=== PATIENT | male | born 1945 | race Caucasian/White ===

== ENCOUNTER 2024-05-09 10:44 | Emergency (ER) | payer MEDICARE, OTHER ==
[~2024-05-09] VITALS: Ht 165.1 cm; Wt 63.5 kg
[2024-05-09 11:31] LABS: APPEARANCE,URINE Clear (CLEAR); BILIRUBIN,URINE Negative (NEGATIVE); BLOOD, URINE Negative Ery/uL (NEGATIVE); COLOR,URINE YELLOW (YELLOW); KETONES,URINE Negative (NEGATIVE); LEUKOCYTE ESTERASE ,URINE Negative (NEGATIVE); NITRITE, URINE Negative (NEGATIVE); PH,URINE 6.5 (5.0-8.0); PROTEIN,URINE Negative (NEGATIVE); UGLUCOSE Negative (NEGATIVE); UROBILINOGEN,URINE 0.2 EU/dL (0.2)
[2024-05-09 11:34] LABS: BASOPHILS % (AUTO) 0.5 % (0.0-2.0); EOSINOPHILS # (AUTO) 0.2 K/uL (0.0-0.7); EOSINOPHILS % (AUTO) 3.7 % (0.0-6.0); HEMATOCRIT 41 % (39-51); HEMOGLOBIN 13.4 g/dL (13.5-17.5); LYMPHOCYTES # (AUTO) 1.5 K/uL (0.8-4.8); LYMPHOCYTES % (AUTO) 30.7 % (20.0-44.0); MEAN CORPUSCULAR HEMOGLOBIN 25 PG (26.0-33.0); MEAN CORPUSCULAR HGB CONC 33 g/dl (31.0-36.0); MEAN CORPUSCULAR VOLUME 78 fL (80-96); MONOCYTES # (AUTO) 0.6 K/uL (0.1-1.30); MONOCYTES % (AUTO) 11.8 % (2.0-12.0); NEUTROPHILS # (AUTO) 2.7 K/uL (1.8-8.9); NEUTROPHILS % (AUTO) 53.3 % (43.0-81.0); PLATELET COUNT (AUTO) 187 K/uL (150-450); RED BLOOD CELL COUNT(AUTO) 5.31 MIL/uL (4.5-6.0); RED CELL DISTRIBUTION WIDTH 14.3 % (11.5-15.0)
[2024-05-09 11:44] LABS: ALANINE AMINOTRANSFERASE 24 U/L (12-78); ALBUMIN 3.2 g/dL (3.4-5.0); ALCOHOL, BLOOD < 3 mg/dL (0-10); ALKALINE PHOSPHATASE 71 U/L (46-116); ASPARTATE AMINOTRANSFERASE 17 U/L (15-37); BILIRUBIN,DIRECT 0.1 mg/dL (0.0-0.2); BILIRUBIN,TOTAL 0.3 mg/dL (0.2-1.0); CARBON DIOXIDE 28 mmol/L (21-32); CHLORIDE 107 mmol/L (98-107); GLUCOSE 101 mg/dL (74-106); POTASSIUM 4.1 mmol/L (3.5-5.1); SODIUM SERUM 140 mmol/L (136-145); TOTAL PROTEIN, SERUM 6.9 g/dL (6.4-8.2); UREA NITROGEN, BLOOD 19 mg/dL (7-18)
[2024-05-09 11:48] LABS: ACETAMINOPHEN <10 ug/ml (10-30); SALICYLATE < 2.3 mg/dL (2.8-20.0)
[2024-05-09 12:14] LABS: AMPHETAMINE, URINE NEGATIVE (NEGATIVE); BARBITURATE, URINE NEGATIVE (NEGATIVE); BENZODIAZEPINE, URINE NEGATIVE (NEGATIVE); CANNABINOID, URINE NEGATIVE (NEGATIVE); COCCAINE, URINE NEGATIVE (NEGATIVE); OPIATE, URINE NEGATIVE (NEGATIVE); PHENCYCLIDINE SCREEN,URINE NEGATIVE (NEGATIVE)
[2024-05-09] MEDS ORDERED: MELA10CA PO (12:16)
[2024-05-09] MEDS ORDERED: CYAN100T9 PO (12:16)
[2024-05-09] MEDS ORDERED: ZINC50TA69 PO (12:16)
[2024-05-09] MEDS ORDERED: MAGN500C16 PO (12:16)
[2024-05-09] MEDS ORDERED: TAMS-12 PO (12:16)
[2024-05-09] MEDS ORDERED: ESCI10TA PO (12:16)
[2024-05-09] MEDS ORDERED: CHOL100062 PO (12:16)
[2024-05-09] MEDS ORDERED: SENN8.6T19 PO (12:16)
[2024-05-09] MEDS ORDERED: ASCO100058 PO (12:16)
[2024-05-09] MEDS ORDERED: OLANZAPINE 10 MG VIAL IM ONE (12:56)
[2024-05-09] MEDS: OLANZAPINE 10 MG VIAL IM ONE (13:00)
[2024-05-09 16:41] VITALS: BP 132/77; TEMP 98.2; O2SAT 98
== END 2024-05-09 16:42 ==
LOC: ER 10:52
DX: F03.911 Unspecified dementia, unspecified severity, with agitation (principal); G47.00 Insomnia, unspecified; R45.1 Restlessness and agitation; E78.5 Hyperlipidemia, unspecified; Z20.822 Contact with and (suspected) exposure to COVID-19
CPT/HCPCS: 99285; 96372; 85025; 80048; 80076; 81003; 36415; 87426; 80143; 80320; 80307; J3490; G0480

== ENCOUNTER 2024-11-14 16:02 | Inpatient (IN) | payer MEDICARE, OTHER ==
[~2024-11-14] VITALS: Ht 172.7 cm; Wt 53.8 kg
[~2024-11-14 16:02] MED LIST: ASCO100058 PO; CHOL100062 PO; CYAN100T9 PO; ESCI10TA PO; MAGN500C16 PO; MELA10CA PO; SENN8.6T19 PO; TAMS-12 PO; ZINC50TA69 PO
[2024-11-14 17:25] LABS: BASOPHILS % (AUTO) 0.4 % (0.0-2.0); EOSINOPHILS # (AUTO) 0.1 K/uL (0.0-0.7); EOSINOPHILS % (AUTO) 1.3 % (0.0-6.0); HEMATOCRIT 37 % (39-51); HEMOGLOBIN 11.7 g/dL (13.5-17.5); LYMPHOCYTES # (AUTO) 1.6 K/uL (0.8-4.8); LYMPHOCYTES % (AUTO) 21.1 % (20.0-44.0); MEAN CORPUSCULAR HEMOGLOBIN 25 PG (26.0-33.0); MEAN CORPUSCULAR HGB CONC 32 g/dl (31.0-36.0); MEAN CORPUSCULAR VOLUME 78 fL (80-96); MONOCYTES # (AUTO) 0.7 K/uL (0.1-1.30); NEUTROPHILS % (AUTO) 67.2 % (43.0-81.0); PLATELET COUNT (AUTO) 299 K/uL (150-450); RED BLOOD CELL COUNT(AUTO) 4.68 MIL/uL (4.5-6.0); RED CELL DISTRIBUTION WIDTH 16.6 % (11.5-15.0); WHITE BLOOD COUNT (AUTO) 7.4 K/uL (4.3-11.0)
[2024-11-14 17:35] LABS: CARBON DIOXIDE 35 mmol/L (21-32); CHLORIDE 104 mmol/L (98-107); CREATININE 0.8 mg/dL (0.6-1.3); GLUCOSE 100 mg/dL (74-106); POTASSIUM 4.3 mmol/L (3.5-5.1); SODIUM SERUM 138 mmol/L (136-145); UREA NITROGEN, BLOOD 19 mg/dL (7-18)
[2024-11-14 17:42] LABS: ALANINE AMINOTRANSFERASE 73 U/L (12-78); ALBUMIN 1.9 g/dL (3.4-5.0); ALKALINE PHOSPHATASE 99 U/L (46-116); ASPARTATE AMINOTRANSFERASE 41 U/L (15-37); BILIRUBIN,DIRECT 0.1 mg/dL (0.0-0.2); BILIRUBIN,TOTAL 0.3 mg/dL (0.2-1.0); TOTAL PROTEIN, SERUM 7.9 g/dL (6.4-8.2)
[2024-11-14] MEDS ORDERED: MAGN400T52 PO (17:52)
[2024-11-14] MEDS ORDERED: ALBU2.5V13 NEB (17:52)
[2024-11-14] MEDS ORDERED: TRAZ150T75 PO (17:52)
[2024-11-14] MEDS ORDERED: GUAI100S9 PO (17:52)
[2024-11-14] MEDS ORDERED: MAG30ORA PO (17:52)
[2024-11-14] MEDS ORDERED: PANT40TA49 PO (17:52)
[2024-11-14] MEDS ORDERED: CRAN300T PO (17:52)
[2024-11-14] MEDS ORDERED: ACET325T53 PO (17:52)
[2024-11-14] MEDS ORDERED: MEMA10TA56 PO (17:52)
[2024-11-14] MEDS ORDERED: ALBU6.7H9 IH (17:52)
[2024-11-14] MEDS ORDERED: MULT-213 PO (17:52)
[2024-11-14] MEDS ORDERED: DOCU100C36 PO (17:52)
[2024-11-14] MEDS ORDERED: MELA1TAB2 PO (17:52)
[2024-11-14] MEDS ORDERED: MAGN400O6 PO (17:52)
[2024-11-14] MEDS ORDERED: ATOR40TA PO (17:52)
[2024-11-14] MEDS ORDERED: DIVA-76 PO (17:52)
[2024-11-14] MEDS ORDERED: ONDANSETRON HCL/PF 4 MG/2 ML VIAL IVP PRN (20:30)
[2024-11-14] MEDS ORDERED: ACETAMINOPHEN 325 MG TABLET PO PRN (20:30)
[2024-11-14] MEDS ORDERED: ALBUTEROL FS 2.5 MG/0.5 ML VIAL.NEB NEB PRN (20:30)
[2024-11-14] MEDS ORDERED: MAG HYDROX/AL HYDROX/SIMETH 30 ML UDC PO PRN (20:30)
[2024-11-14] MEDS ORDERED: ZOLPIDEM TARTRATE 5 MG TABLET PO PRN (20:30)
[2024-11-14] MEDS ORDERED: MAGNESIUM HYDROXIDE 30 ML UDC PO PRN (20:30)
[2024-11-14] MEDS ORDERED: Z GUARD REMEDY 4 OZ OINT TP PRN (20:30)
[2024-11-14] MEDS: ENOXAPARIN SODIUM 40 MG/0.4 ML DISP.SYRIN SQ SCH (20:30)
[2024-11-14] MEDS ORDERED: DOCUSATE SODIUM 100 MG CAPSULE PO PRN (20:30)
[2024-11-14] MEDS: TRAZODONE 50 MG TABLET PO SCH (22:00)
[2024-11-14] MEDS: ATORVASTATIN 40 MG TABLET PO SCH (22:00)
[2024-11-14] MEDS: TAMSULOSIN 0.4 MG CAP.SR.24H PO SCH (22:00)
[2024-11-14] MEDS ORDERED: PYRIDOXINE PO SCH (22:00)
[2024-11-14] MEDS ORDERED: MELATONIN PO SCH (22:00)
[2024-11-14] MEDS ORDERED: ENOXAPARIN SODIUM 40 MG/0.4 ML DISP.SYRIN SQ ONE (23:25)
[2024-11-14] MEDS ORDERED: TAMSULOSIN 0.4 MG CAP.SR.24H ONE (23:25)
[2024-11-14] MEDS ORDERED: ATORVASTATIN 40 MG TABLET ONE (23:25)
[2024-11-14] MEDS ORDERED: TRAZODONE 50 MG TABLET ONE (23:26)
[2024-11-15 01:31] LABS: APPEARANCE,URINE CLEAR (CLEAR); BILIRUBIN,URINE NEGATIVE (NEGATIVE); BLOOD, URINE NEGATIVE Ery/uL (NEGATIVE); COLOR,URINE YELLOW (YELLOW); KETONES,URINE NEGATIVE (NEGATIVE); LEUKOCYTE ESTERASE ,URINE NEGATIVE (NEGATIVE); NITRITE, URINE NEGATIVE (NEGATIVE); PH,URINE 6.5 (5.0-8.0); PROTEIN,URINE NEGATIVE (NEGATIVE); UGLUCOSE NEGATIVE (NEGATIVE); UROBILINOGEN,URINE 0.2 EU/dL (0.2)
[2024-11-15 07:33] LABS: BASOPHILS % (AUTO) 0.6 % (0.0-2.0); EOSINOPHILS # (AUTO) 0.1 K/uL (0.0-0.7); EOSINOPHILS % (AUTO) 1.5 % (0.0-6.0); HEMATOCRIT 37 % (39-51); LYMPHOCYTES # (AUTO) 1.6 K/uL (0.8-4.8); LYMPHOCYTES % (AUTO) 25.8 % (20.0-44.0); MEAN CORPUSCULAR HEMOGLOBIN 25 PG (26.0-33.0); MEAN CORPUSCULAR HGB CONC 32 g/dl (31.0-36.0); MEAN CORPUSCULAR VOLUME 78 fL (80-96); MONOCYTES # (AUTO) 0.6 K/uL (0.1-1.30); MONOCYTES % (AUTO) 9.3 % (2.0-12.0); NEUTROPHILS % (AUTO) 62.8 % (43.0-81.0); PLATELET COUNT (AUTO) 290 K/uL (150-450); RED BLOOD CELL COUNT(AUTO) 4.78 MIL/uL (4.5-6.0); RED CELL DISTRIBUTION WIDTH 16.5 % (11.5-15.0); WHITE BLOOD COUNT (AUTO) 6.3 K/uL (4.3-11.0)
[2024-11-15 07:50] LABS: ALBUMIN 2.2 g/dL (3.4-5.0); BILIRUBIN,DIRECT 0.1 mg/dL (0.0-0.2); BILIRUBIN,TOTAL 0.3 mg/dL (0.2-1.0); CALCIUM, SERUM 9.1 mg/dL (8.5-10.1); CREATININE 0.9 mg/dL (0.6-1.3); MAGNESIUM 2.1 mg/dL (1.8-2.4); PHOSPHORUS 2.5 mg/dL (2.5-4.9); POTASSIUM 3.8 mmol/L (3.5-5.1); TOTAL PROTEIN, SERUM 8.1 g/dL (6.4-8.2)
[2024-11-15 08:14] LABS: THYROID STIMULATING HORMONE 1.52 uIU/mL (0.358-3.74)
[2024-11-15] MEDS ORDERED: Medication Not On Formulary EA (Cranberry Extract (Cranberry) 450 MG) PO SCH (09:00)
[2024-11-15] MEDS: DIVALPROEX SODIUM 250 MG TABLET.DR PO SCH (09:02)
[2024-11-15] MEDS: MEMANTINE HCL 5 MG TABLET PO SCH (09:02)
[2024-11-15] MEDS: MULTIVIT W/MINERALS 1 TAB TABLET PO SCH (09:02)
[2024-11-15] MEDS: SENNOSIDES 8.6 MG TABLET PO SCH (09:03)
[2024-11-15] MEDS: PANTOPRAZOLE 40 MG TABLET.DR PO SCH (09:03)
[2024-11-15 13:00] VITALS: BP 116/54; TEMP 97.8; O2SAT 100
[2024-11-15 21:00] VITALS: BP 110/55; TEMP 98.6; O2SAT 97
[2024-11-15] MEDS: MAGNESIUM OXIDE 400 MG TABLET PO SCH (21:53)
[2024-11-16 05:00] VITALS: BP 135/60; TEMP 96.8; O2SAT 97
[2024-11-16 13:00] VITALS: BP 130/65; TEMP 97.3; O2SAT 97
[2024-11-16 20:00] VITALS: BP 108/56; TEMP 97.9; O2SAT 100
[2024-11-17 04:00] VITALS: BP 130/58; TEMP 97.9; O2SAT 99
[2024-11-17 08:00] VITALS: BP 109/55; TEMP 97.5; O2SAT 97
[2024-11-17 16:00] VITALS: BP 119/58; TEMP 98.1; O2SAT 97
[2024-11-17] MEDS: ENSURE ENLIVE 237 ML LIQUID (VANILLA) PO SCH (17:57)
[2024-11-17 20:38] VITALS: BP 118/72; TEMP 98.2; O2SAT 100
[2024-11-18 04:00] VITALS: BP 109/49; TEMP 97.9; O2SAT 97
[2024-11-18 08:00] VITALS: BP 102/50; TEMP 97.5; O2SAT 95
[2024-11-18 16:00] VITALS: BP 127/67; TEMP 98.4; O2SAT 95
[2024-11-18 23:33] VITALS: BP 116/55; TEMP 97.9; O2SAT 96
[2024-11-19 06:12] VITALS: BP 105/43; TEMP 98.1; O2SAT 93
[2024-11-19 08:00] VITALS: BP 109/56; TEMP 97.6; O2SAT 94
[2024-11-19 16:00] VITALS: BP 137/77; TEMP 97.9; O2SAT 94
[2024-11-19 20:00] VITALS: BP 136/57; TEMP 97.5; O2SAT 98
[2024-11-20 04:00] VITALS: BP 140/56; TEMP 97.8; O2SAT 98
[2024-11-20 08:00] VITALS: BP 132/59; TEMP 97.6; O2SAT 95
== END 2024-11-20 12:49 | DRG 640 ==
LOC: ER 16:25 → OBSER 11-15 02:31 → TELE1 11-15 05:45 → MEDSG1 11-15 06:49
PROVIDERS: ADMIT Nurse Practitioner Family; ATTEND Internal Medicine
DX: R62.7 Adult failure to thrive (principal); G93.41 Metabolic encephalopathy; Z68.1 Body mass index [BMI] 19.9 or less, adult; E44.0 Moderate protein-calorie malnutrition; F03.93 Unspecified dementia, unspecified severity, with mood disturbance; E86.0 Dehydration; D63.8 Anemia in other chronic diseases classified elsewhere; E88.09 Other disorders of plasma-protein metabolism, not elsewhere classified; I10 Essential (primary) hypertension; J44.9 Chronic obstructive pulmonary disease, unspecified; K21.9 Gastro-esophageal reflux disease without esophagitis; N40.0 Benign prostatic hyperplasia without lower urinary tract symptoms; F39 Unspecified mood [affective] disorder; E78.5 Hyperlipidemia, unspecified
CPT/HCPCS: 36415; 70450-TC; 71045-TC; 80048-TC; 80076-TC; 83735-TC; 84100-TC; 84443-TC; 84484-TC; 85025-TC; 87086-TC; G0378; J1650

== ENCOUNTER 2025-08-07 15:59 | Inpatient (IN) | payer MEDICARE, OTHER ==
[~2025-08-07] VITALS: Ht 172.7 cm; Wt 59.9 kg
[~2025-08-07 15:59] MED LIST changes: +ACET325T53 PO; +ALBU2.5V13 NEB; +ALBU6.7H9 IH; -ASCO100058 PO; +ATOR40TA PO; +CETI10TA14 PO; -CHOL100062 PO; +CRAN300T PO; -CYAN100T9 PO; +DIVA-76 PO; +DOCU100C36 PO; -ESCI10TA PO; +GUAI100S9 PO; +MAG30ORA PO; +MAGN400O6 PO; +MAGN400T52 PO; -MAGN500C16 PO; -MELA10CA PO; +MELA1TAB2 PO; +MEMA10TA56 PO; +MULT-213 PO; +PANT40TA49 PO; +TRAZ150T75 PO; -ZINC50TA69 PO
[2025-08-07 16:28] LABS: PLATELET COUNT (AUTO) 198 K/uL (150-450); RED BLOOD CELL COUNT(AUTO) 4.96 MIL/uL (4.5-6.0); RED CELL DISTRIBUTION WIDTH 15.2 % (11.5-15.0); WHITE BLOOD COUNT (AUTO) 5.1 K/uL (4.3-11.0)
[2025-08-07] MEDS ORDERED: Z GUARD REMEDY 4 OZ OINT TP PRN (16:30)
[2025-08-07] MEDS ORDERED: ONDANSETRON HCL/PF 4 MG/2 ML VIAL IVP PRN (16:30)
[2025-08-07] MEDS ORDERED: ACETAMINOPHEN 325 MG TABLET PO PRN (16:30)
[2025-08-07] MEDS ORDERED: MAG HYDROX/AL HYDROX/SIMETH 30 ML UDC PO PRN (16:30)
[2025-08-07] MEDS ORDERED: DOCUSATE SODIUM 100 MG CAPSULE PO PRN (16:30)
[2025-08-07] MEDS ORDERED: MAGNESIUM HYDROXIDE 30 ML UDC PO PRN (16:30)
[2025-08-07 16:34] LABS: CALCIUM, SERUM 8.9 mg/dL (8.5-10.1); CREATININE 0.9 mg/dL (0.6-1.3); SODIUM SERUM 142 mmol/L (136-145); UREA NITROGEN, BLOOD 24 mg/dL (7-18)
[2025-08-07 16:40] LABS: ASPARTATE AMINOTRANSFERASE 24 U/L (15-37); TOTAL PROTEIN, SERUM 7.3 g/dL (6.4-8.2)
[2025-08-07] MEDS: MEMANTINE HCL 5 MG TABLET PO SCH (18:55)
[2025-08-07] MEDS: DIVALPROEX SODIUM 250 MG TABLET.DR PO SCH (18:55)
[2025-08-07 20:00] VITALS: BP 128/55; TEMP 98.1; O2SAT 98
[2025-08-07 20:06] VITALS: O2SAT 98
[2025-08-07] MEDS: ALBUTEROL FS 2.5 MG/3 ML VIAL.NEB NEB SCH (20:06)
[2025-08-07 20:16] VITALS: O2SAT 99
[2025-08-07] MEDS: MAGNESIUM OXIDE 400 MG TABLET PO SCH (22:00)
[2025-08-07] MEDS ORDERED: PYRIDOXINE PO SCH (22:00)
[2025-08-07] MEDS: TAMSULOSIN 0.4 MG CAP.SR.24H PO SCH (22:00)
[2025-08-07] MEDS: TRAZODONE 50 MG TABLET PO SCH (22:00)
[2025-08-07] MEDS ORDERED: MELATONIN PO SCH (22:00)
[2025-08-07 23:11] VITALS: O2SAT 99
[2025-08-08 03:30] VITALS: O2SAT 99
[2025-08-08 08:00] VITALS: BP 134/70; TEMP 97.9; O2SAT 97
[2025-08-08] MEDS: PANTOPRAZOLE 40 MG TABLET.DR PO SCH (08:22)
[2025-08-08] MEDS: SENNOSIDES 8.6 MG TABLET PO SCH (08:22)
[2025-08-08] MEDS: MULTIVIT W/MINERALS 1 TAB TABLET PO SCH (08:22)
[2025-08-08 11:49] LABS: PLATELET COUNT (AUTO) 203 K/uL (150-450); RED BLOOD CELL COUNT(AUTO) 5.10 MIL/uL (4.5-6.0); RED CELL DISTRIBUTION WIDTH 14.9 % (11.5-15.0); WHITE BLOOD COUNT (AUTO) 6.6 K/uL (4.3-11.0)
[2025-08-08 12:08] LABS: CALCIUM, SERUM 9.2 mg/dL (8.5-10.1); CREATININE 0.9 mg/dL (0.6-1.3); PHOSPHORUS 3.6 mg/dL (2.5-4.9); SODIUM SERUM 144.0 mmol/L (136-145); UREA NITROGEN, BLOOD 20.0 mg/dL (7-18)
[2025-08-08 16:00] VITALS: BP 131/67; TEMP 98.1; O2SAT 98
[2025-08-08 20:01] VITALS: O2SAT 98
[2025-08-08 20:56] VITALS: BP 151/71; TEMP 97.7; O2SAT 96
[2025-08-08 23:53] VITALS: O2SAT 98
[2025-08-08] MEDS: IV NS 0.9% 1,000 ML IV PRN (23:57)
[2025-08-09 04:20] VITALS: O2SAT 99
[2025-08-09 08:44] VITALS: BP 137/62; TEMP 97.8; O2SAT 97
[2025-08-09] MEDS: HYDROCORTISONE 1% CREAM 28.35 GM TUBE TP SCH (17:40)
[2025-08-09 20:00] VITALS: BP 106/54; TEMP 97.5; O2SAT 97
[2025-08-09 20:06] VITALS: O2SAT 98
[2025-08-09 23:40] VITALS: O2SAT 97
[2025-08-10 03:30] VITALS: O2SAT 97
[2025-08-10 07:30] VITALS: BP 134/73; TEMP 97.3; O2SAT 100
[2025-08-10 11:37] VITALS: O2SAT 96
[2025-08-10 11:47] VITALS: O2SAT 100
[2025-08-10] MEDS ORDERED: HYDR28.32 TP (14:06)
== END 2025-08-10 15:05 | DRG 640 ==
LOC: ER 16:10 → MED 18:40
PROVIDERS: ADMIT Nurse Practitioner Acute Care; ATTEND Nurse Practitioner Acute Care
DX: E86.0 Dehydration (principal); G93.41 Metabolic encephalopathy; R62.7 Adult failure to thrive; I10 Essential (primary) hypertension; F03.90 Unspecified dementia, unspecified severity, without behavioral disturbance, psychotic disturbance, mood disturbance, and anxiety; G89.29 Other chronic pain; Z79.899 Other long term (current) drug therapy; J44.9 Chronic obstructive pulmonary disease, unspecified; F99 Mental disorder, not otherwise specified; R53.1 Weakness; E78.5 Hyperlipidemia, unspecified; Z68.20 Body mass index [BMI] 20.0-20.9, adult; N40.0 Benign prostatic hyperplasia without lower urinary tract symptoms
CPT/HCPCS: 36415; 71045-TC; 80048-TC; 80076-TC; 83735-TC; 84100-TC; 84484-TC; 85025-TC; 87081-TC; 94760-TC; 94762-TC; 94799-TC; A4223; G0378; J7030